=== PATIENT | male | born 1965 ===

== ENCOUNTER 2025-08-02 17:56 | Emergency (ER) | payer OTHER ==
[~2025-08-02] VITALS: Ht 165.1 cm; Wt 68.2 kg
[2025-08-02 18:09] VITALS: BP 122/83; PULSE 85; RESP 18; TEMP 98.1; O2SAT 96
[2025-08-02] MEDS ORDERED: RABIES VACCINE, HUMAN DIPLOID/PF 2.5 UNITS/ML VIAL IM. ONE (21:30)
[2025-08-02] MEDS ORDERED: PERTUSS(ACELL),DIPH,TET/PF 0.5 ML SYRINGE [ADULT] IM. ONE (21:30)
[2025-08-02] MEDS: IBUPROFEN 600 MG TABLET PO ONE (21:50)
[2025-08-02] MEDS: AMOX TR/POT CLAV 875 MG/125 MG TABLET PO ONE (21:50)
[2025-08-02] MEDS: BACITRACIN 0.9 GM PACKET OINTMENT TP ONE (21:50)
[2025-08-02] MEDS ORDERED: AMOX-457 PO (21:59)
[2025-08-02] MEDS ORDERED: IBUP-1492 PO (22:00)
== END 2025-08-02 22:11 | disposition home or self-care (01) ==
LOC: EMS 17:56
DX: S51.851A Open bite of right forearm, initial encounter (principal); F17.210 Nicotine dependence, cigarettes, uncomplicated; Z79.899 Other long term (current) drug therapy; W54.0XXA Bitten by dog, initial encounter; Y93.89 Activity, other specified; Y92.89 Other specified places as the place of occurrence of the external cause; Y99.8 Other external cause status
CPT/HCPCS: 90675; 99284